=== PATIENT | male | born 1995 | race Caucasian/White ===

== ENCOUNTER 2021-04-27 11:35 | Emergency (ER) | payer MEDICAID ==
[~2021-04-27] VITALS: Ht 177.8 cm; Wt 68.2 kg
[2021-04-27 13:30] VITALS: BP 127/66
[2021-04-27] MEDS ORDERED: IBUPROFEN 400 MG TABLET PO ONE (13:30)
[2021-04-27] MEDS ORDERED: LIDOCAINE 5% TRANSDERMAL PATCH TD ONE (13:30)
[2021-04-27] MEDS ORDERED: ACETAMINOPHEN 325 MG TABLET PO ONE (13:30)
== END 2021-04-27 14:55 | disposition home or self-care (01) ==
LOC: EMS 11:37
DX: M54.6 Pain in thoracic spine (principal)
CPT/HCPCS: 99284; Z7502; Z7610

== ENCOUNTER 2021-06-27 17:49 | Emergency (ER) | payer MEDICAID, MEDICARE ==
[~2021-06-27] VITALS: Ht 182.9 cm; Wt 65.9 kg
[2021-06-27 18:04] VITALS: BP 131/95
== END 2021-06-27 20:30 | disposition left against medical advice (07) ==
LOC: EMS 17:50
DX: M54.9 Dorsalgia, unspecified (principal); Z53.21 Procedure and treatment not carried out due to patient leaving prior to being seen by health care provider